=== PATIENT | female | born 1965 | race Caucasian/White ===

== ENCOUNTER → 2017-11-23 | Outpatient (CLI) | payer BC ==
[2016-05-13 21:30] VITALS: BP 165/96
[~2017-11-23] MED LIST: EFFEXOR75 MG PO; FLONASE0.05 MG/AC NS; IMITREX50 MG PO; INDERAL40 MG PO; NAPROSYN500 MG PO; NORCO 325 MG-51 TAB PO; PREMARIN1.25 MG PO; XANAX0.25 MG PO
== END ==
LOC: MAMMO 09:52 → RAD 10:00
DX: Z12.31 Encounter for screening mammogram for malignant neoplasm of breast (principal)

== ENCOUNTER → 2018-06-06 | Outpatient (CLI) | payer BC ==
[2016-05-13 21:30] VITALS: BP 165/96
[2018-06-06 11:44] LABS: EOS # 0.2 (0.04-0.40); EOS % 1.7 % (1.0-5.0); HEMATOCRIT 41.6 % (37.0-47.0); HEMOGLOBIN 13.1 g/dL (12.5-16.0); MEAN CELL VOLUME 92 fl (78-100); MEAN CORPUSCULAR HEMOGLOBIN 29 pg (27-31); MEAN CORPUSCULAR HGB CONC 32 g/dL (33-37); MEAN PLATELET VOLUME 9.7 fl (7.4-10.4); MONO # 0.7 (0.20-0.80); NEU # 5.7 (1.40-6.50); PLATELET COUNT 380 K/mm3 (130-400); RED BLOOD COUNT 4.54 M/mm3 (4.10-5.30); RED CELL DISTRIBUTION WIDTH 13.9 % (11.5-14.5); WHITE BLOOD COUNT 11.8 K/mm3 (4.8-10.8)
[2018-06-06 12:00] LABS: ALBUMIN 3.9 g/dL (3.5-5.0); BUN/CREATININE RATIO 32.5 (6.0-26.0); CALCIUM 8.7 mg/dL (8.4-10.2); POTASSIUM 4.4 mmol/L (3.6-5.0); TOTAL BILIRUBIN 0.2 mg/dL (0.2-1.3); TOTAL PROTEIN 7.3 g/dL (6.3-8.2)
[2018-06-06 12:21] LABS: LYMPH# 5.1 (1.50-4.00)
== END ==
LOC: LAB 10:58
PROVIDERS: Family Medicine
DX: Z01.419 Encounter for gynecological examination (general) (routine) without abnormal findings (principal)

== ENCOUNTER → 2018-11-29 | Outpatient (CLI) | payer BC ==
[2016-05-13 21:30] VITALS: BP 165/96
== END ==
LOC: MAMMO 10:44
DX: Z12.31 Encounter for screening mammogram for malignant neoplasm of breast (principal)

== ENCOUNTER → 2019-06-06 | Outpatient (CLI) | payer BC ==
[2016-05-13 21:30] VITALS: BP 165/96
[2019-06-06 09:39] LABS: EOS # 0.1 (0.04-0.40); EOS % 1.3 % (1.0-5.0); HEMATOCRIT 41.2 % (37.0-47.0); MEAN CELL VOLUME 92 fl (78-100); MEAN CORPUSCULAR HEMOGLOBIN 29 pg (27-31); MEAN CORPUSCULAR HGB CONC 32 g/dL (33-37); MEAN PLATELET VOLUME 9.5 fl (7.4-10.4); MONO # 0.5 (0.20-0.80); NEU # 4.7 (1.40-6.50); PLATELET COUNT 332 K/mm3 (130-400); RED CELL DISTRIBUTION WIDTH 13.3 % (11.5-14.5); WHITE BLOOD COUNT 9.9 K/mm3 (4.8-10.8)
[2019-06-06 09:44] LABS: ALBUMIN 3.8 g/dL (3.5-5.0); POTASSIUM 4.1 mmol/L (3.5-5.1)
[2019-06-06 09:45] LABS: CALCIUM 8.8 mg/dL (8.3-10.5)
[2019-06-06 09:46] LABS: TOTAL PROTEIN 6.9 g/dL (6.4-8.3)
[2019-06-06 09:48] LABS: TOTAL BILIRUBIN 0.2 mg/dL (0.2-1.2)
[2019-06-06 11:04] LABS: LYMPH# 4.6 (1.50-4.00)
== END ==
LOC: LAB 09:22
PROVIDERS: Family Medicine
DX: Z01.419 Encounter for gynecological examination (general) (routine) without abnormal findings (principal); E78.5 Hyperlipidemia, unspecified

== ENCOUNTER → 2019-07-13 | Outpatient (CLI) | payer BC ==
[2016-05-13 21:30] VITALS: BP 165/96
== END ==
LOC: RAD 11:59
DX: M25.511 Pain in right shoulder (principal)

== ENCOUNTER → 2019-07-19 | Outpatient (CLI) | payer BC ==
[2016-05-13 21:30] VITALS: BP 165/96
== END ==
LOC: RAD 15:09
DX: M75.111 Incomplete rotator cuff tear or rupture of right shoulder, not specified as traumatic (principal); M89.311 Hypertrophy of bone, right shoulder

== ENCOUNTER 2019-10-02 11:00 | Outpatient (RCR) | payer BC ==
[2016-05-13 21:30] VITALS: BP 165/96
== END 2019-10-02 11:30 | disposition still patient (30) ==
LOC: PT 11:00
DX: M75.111 Incomplete rotator cuff tear or rupture of right shoulder, not specified as traumatic (principal)

== ENCOUNTER → 2019-11-28 | Outpatient (CLI) | payer BC ==
[2016-05-13 21:30] VITALS: BP 165/96
== END ==
LOC: MAMMO 11:23
DX: Z12.31 Encounter for screening mammogram for malignant neoplasm of breast (principal)

== ENCOUNTER → 2020-12-16 | Outpatient (CLI) | payer BC ==
[2016-05-13 21:30] VITALS: BP 165/96
== END ==
LOC: MAMMO 12:51
DX: Z12.31 Encounter for screening mammogram for malignant neoplasm of breast (principal)

== ENCOUNTER → 2021-06-15 | Outpatient (CLI) | payer BC ==
[2021-06-15 10:28] LABS: BASO # 0.03 (0.02-0.10); EOS # 0.26 (0.04-0.40); EOS % 1.8 % (1.0-5.0); HEMATOCRIT 43.6 % (37.0-47.0); HEMOGLOBIN 13.9 g/dL (12.5-16.0); LYMPH# 6.52 (1.50-4.00); MEAN CELL VOLUME 91 fl (78-100); MEAN CORPUSCULAR HEMOGLOBIN 29 pg (27-31); MEAN CORPUSCULAR HGB CONC 32 g/dL (33-37); MEAN PLATELET VOLUME 9.1 fl (7.4-10.4); MONO # 0.81 (0.20-0.80); PLATELET COUNT 381 K/mm3 (130-400); RED CELL DISTRIBUTION WIDTH 13.4 % (11.5-14.5); WHITE BLOOD COUNT 14.5 K/mm3 (4.8-10.8)
[2021-06-15 10:41] LABS: ALBUMIN 4.3 g/dL (3.5-5.0); POTASSIUM 4.3 mmol/L (3.5-5.1)
[2021-06-15 10:45] LABS: TOTAL BILIRUBIN 0.4 mg/dL (0.2-1.2)
== END ==
LOC: LAB 05-29 12:58
PROVIDERS: Family Medicine
DX: Z00.00 Encounter for general adult medical examination without abnormal findings (principal); E78.5 Hyperlipidemia, unspecified

== ENCOUNTER → 2022-01-07 | Outpatient (CLI) | payer BC | LOC: MAMMO 10:00 | DX: Z12.31 Encounter for screening mammogram for malignant neoplasm of breast (principal) ==

== ENCOUNTER → 2022-04-28 | Outpatient (CLI) | payer BC ==
[2022-04-28 12:35] LABS: HEMATOCRIT 43.9 % (37.0-47.0); HEMOGLOBIN 14.3 g/dL (12.5-16.0); MEAN CELL VOLUME 89 fl (78-100); MEAN CORPUSCULAR HEMOGLOBIN 29 pg (27-31); MEAN CORPUSCULAR HGB CONC 33 g/dL (33-37); MEAN PLATELET VOLUME 9.1 fl (7.4-10.4); PLATELET COUNT 380 K/mm3 (130-400); RED BLOOD COUNT 4.93 M/mm3 (4.10-5.30); RED CELL DISTRIBUTION WIDTH 13.3 % (11.5-14.5); WHITE BLOOD COUNT 11.5 K/mm3 (4.8-10.8)
[2022-04-28 12:44] LABS: ALBUMIN 4.4 g/dL (3.5-5.0); POTASSIUM 5.1 mmol/L (3.5-5.1)
[2022-04-28 12:45] LABS: CALCIUM 10.1 mg/dL (8.3-10.5)
[2022-04-28 12:48] LABS: TOTAL BILIRUBIN 0.3 mg/dL (0.2-1.2)
[2022-04-28 13:10] LABS: LYMPHOCYTE 50 % (20-51); MONOCYTE 3 % (3-10); NEUTROPHILS 44 % (42-75)
== END ==
LOC: LAB 11:51
PROVIDERS: Family Medicine
DX: Z00.00 Encounter for general adult medical examination without abnormal findings (principal); E78.5 Hyperlipidemia, unspecified; J30.9 Allergic rhinitis, unspecified; F90.0 Attention-deficit hyperactivity disorder, predominantly inattentive type; I10 Essential (primary) hypertension; G43.009 Migraine without aura, not intractable, without status migrainosus; F41.8 Other specified anxiety disorders; E66.9 Obesity, unspecified

== ENCOUNTER → 2022-05-04 | Outpatient (CLI) | payer BC ==
[2022-05-04 17:54] LABS: HEPATITIS C ANTIBODY Negative (Negative)
== END ==
LOC: RAD 07:08 → LAB 07:08 → RAD 07:15
PROVIDERS: Family Medicine
DX: R74.01 Elevation of levels of liver transaminase levels (principal); K76.0 Fatty (change of) liver, not elsewhere classified; Z90.49 Acquired absence of other specified parts of digestive tract

== ENCOUNTER 2022-06-04 08:52 | Outpatient (RCR) | payer BC | END 2022-06-20 | disposition home or self-care (01) | LOC: CARDREHAB | DX: R06.09 Other forms of dyspnea (principal) | CPT/HCPCS: A9500 ==

== ENCOUNTER 2024-02-08 17:55 | Emergency (ER) | payer OTHER ==
[~2024-02-08] VITALS: Ht 162.6 cm; Wt 81.8 kg
[2024-02-08] MEDS ORDERED: Morphine 10 MG/ML VIAL IM ONE (18:30)
[2024-02-08 19:11] VITALS: BP 126/77
== END 2024-02-08 19:12 | disposition home or self-care (01) ==
LOC: ED 17:55
DX: S93.402A Sprain of unspecified ligament of left ankle, initial encounter (principal); W11.XXXA Fall on and from ladder, initial encounter; X50.1XXA Overexertion from prolonged static or awkward postures, initial encounter
CPT/HCPCS: J2270; L4386

== ENCOUNTER 2024-05-29 11:45 | Emergency (ER) | payer OTHER ==
[~2024-05-29] VITALS: Ht 162.6 cm; Wt 77.3 kg
[2024-05-29] MEDS ORDERED: NS 1,000 ML IV SCH ×2 (12:15→14:00)
[2024-05-29] MEDS ORDERED: Ketorolac 30 MG/ML VIAL IV ONE (12:15)
[2024-05-29] MEDS ORDERED: Ondansetron 4 MG/2 ML VIAL IV ONE (12:15)
[2024-05-29 12:49] LABS: BASO # 0.01 K/mm3 (0.02-0.10); EOS # 0.09 K/mm3 (0.04-0.40); EOS % 0.9 % (1.0-5.0); HEMATOCRIT 45.4 % (37.0-47.0); HEMOGLOBIN 14.9 g/dL (12.5-16.0); LYMPH# 4.19 K/mm3 (1.50-4.00); MEAN CELL VOLUME 88 fl (78-100); MEAN CORPUSCULAR HEMOGLOBIN 29 pg (27-31); MEAN CORPUSCULAR HGB CONC 33 g/dL (33-37); MEAN PLATELET VOLUME 9.2 fl (7.4-10.4); MONO # 0.72 K/mm3 (0.20-0.80); NEU # 4.94 K/mm3 (1.40-6.50); PLATELET COUNT 313 K/mm3 (130-400); RED BLOOD COUNT 5.19 M/mm3 (4.10-5.30); RED CELL DISTRIBUTION WIDTH 13.3 % (11.5-14.5)
[2024-05-29 12:55] LABS: ALBUMIN 4.2 g/dL (3.5-5.0)
[2024-05-29 12:57] LABS: CALCIUM 9.6 mg/dL (8.3-10.5)
[2024-05-29 12:58] LABS: TOTAL PROTEIN 7.6 g/dL (6.4-8.3)
[2024-05-29] MEDS ORDERED: Potassium Chloride 100 ML IV SCH (13:15)
[2024-05-29 13:37] LABS: TOTAL BILIRUBIN 0.5 mg/dL (0.2-1.2)
[2024-05-29 17:54] LABS: URINE COLOR YELLOW (YELLOW)
[2024-05-29 17:55] LABS: PH-URINE 6.5 (5.0 - 8.0); URINE APPEARANCE CLEAR (CLEAR); URINE BILIRUBIN NEGATIVE (NEGATIVE); URINE BLOOD NEGATIVE (NEGATIVE); URINE GLUCOSE NEGATIVE (NEGATIVE); URINE KETONE NEGATIVE (NEGATIVE); URINE LEUKOCYTE ESTERASE TRACE (NEGATIVE); URINE MUCUS PRESENT (NOT PRESENT); URINE NITRATE NEGATIVE (NEGATIVE); URINE PROTEIN(semi-quant) NEGATIVE (NEGATIVE)
[2024-05-29] MEDS ORDERED: POTASSIUM CITR10 MEQ PO (18:11)
[2024-05-29] MEDS ORDERED: ZOFRAN ODT4 MG PO (18:12)
[2024-05-29 19:16] VITALS: BP 133/98
== END 2024-05-29 19:16 | disposition home or self-care (01) ==
LOC: ED 11:45
PROVIDERS: Physician Assistant
DX: E87.6 Hypokalemia (principal); R11.2 Nausea with vomiting, unspecified; R19.7 Diarrhea, unspecified
CPT/HCPCS: J1885; J2405; J3480; J7030

== ENCOUNTER → 2024-05-31 | Outpatient (CLI) | payer OTHER ==
[~2024-05-31] MED LIST changes: +POTASSIUM CITR10 MEQ PO; +ZOFRAN ODT4 MG PO
[2024-05-31 11:09] LABS: BASO # 0.02 K/mm3 (0.02-0.10); EOS # 0.16 K/mm3 (0.04-0.40); EOS % 1.6 % (1.0-5.0); HEMATOCRIT 41.8 % (37.0-47.0); HEMOGLOBIN 13.5 g/dL (12.5-16.0); LYMPH# 4.35 K/mm3 (1.50-4.00); MEAN CELL VOLUME 89 fl (78-100); MEAN CORPUSCULAR HEMOGLOBIN 29 pg (27-31); MEAN CORPUSCULAR HGB CONC 32 g/dL (33-37); NEU # 4.77 K/mm3 (1.40-6.50); PLATELET COUNT 274 K/mm3 (130-400); RED BLOOD COUNT 4.69 M/mm3 (4.10-5.30); RED CELL DISTRIBUTION WIDTH 13.1 % (11.5-14.5); WHITE BLOOD COUNT 9.7 K/mm3 (4.8-10.8)
[2024-05-31 11:17] LABS: CALCIUM 9.2 mg/dL (8.3-10.5)
[2024-05-31 11:19] LABS: TOTAL PROTEIN 7.1 g/dL (6.4-8.3)
[2024-05-31 11:20] LABS: TOTAL BILIRUBIN 0.3 mg/dL (0.2-1.2)
== END ==
LOC: LAB 10:49
PROVIDERS: Family Medicine
DX: I10 Essential (primary) hypertension (principal)

== ENCOUNTER → 2024-06-12 | Outpatient (CLI) | payer OTHER ==
[2024-06-12 12:11] LABS: BASO # 0.02 K/mm3 (0.02-0.10); EOS # 0.17 K/mm3 (0.04-0.40); EOS % 1.6 % (1.0-5.0); HEMATOCRIT 43.8 % (37.0-47.0); HEMOGLOBIN 14.2 g/dL (12.5-16.0); LYMPH# 4.61 K/mm3 (1.50-4.00); MEAN CELL VOLUME 89 fl (78-100); MEAN CORPUSCULAR HEMOGLOBIN 29 pg (27-31); MEAN CORPUSCULAR HGB CONC 32 g/dL (33-37); MEAN PLATELET VOLUME 9.1 fl (7.4-10.4); MONO # 0.61 K/mm3 (0.20-0.80); NEU # 5.29 K/mm3 (1.40-6.50); PLATELET COUNT 373 K/mm3 (130-400); RED BLOOD COUNT 4.92 M/mm3 (4.10-5.30); RED CELL DISTRIBUTION WIDTH 13.2 % (11.5-14.5); WHITE BLOOD COUNT 10.7 K/mm3 (4.8-10.8)
[2024-06-12 12:19] LABS: ALBUMIN 4.3 g/dL (3.5-5.0)
[2024-06-12 12:20] LABS: CALCIUM 10.1 mg/dL (8.3-10.5)
[2024-06-12 12:21] LABS: TOTAL PROTEIN 7.6 g/dL (6.4-8.3)
[2024-06-12 12:23] LABS: TOTAL BILIRUBIN 0.3 mg/dL (0.2-1.2)
== END ==
LOC: LAB 11:59
PROVIDERS: Family Medicine
DX: E78.5 Hyperlipidemia, unspecified (principal); I10 Essential (primary) hypertension; E55.9 Vitamin D deficiency, unspecified

== ENCOUNTER 2024-07-26 10:48 | Outpatient (RCR) | payer OTHER | END 2024-08-20 | disposition home or self-care (01) | LOC: PT | DX: M25.572 Pain in left ankle and joints of left foot (principal) ==

== ENCOUNTER 2024-08-24 08:00 | Outpatient (RCR) | payer OTHER | END 2024-09-20 | disposition home or self-care (01) | LOC: PT | DX: M25.572 Pain in left ankle and joints of left foot (principal); Z87.81 Personal history of (healed) traumatic fracture ==

== ENCOUNTER 2024-10-01 08:00 | Outpatient (RCR) | payer OTHER | END 2024-10-20 | LOC: PT | DX: M25.572 Pain in left ankle and joints of left foot (principal) ==

== ENCOUNTER → 2024-10-08 | Outpatient (CLI) | payer OTHER ==
[2024-10-08 11:05] LABS: ALBUMIN 4.5 g/dL (3.5-5.0)
[2024-10-08 11:07] LABS: CALCIUM 9.9 mg/dL (8.3-10.5)
[2024-10-08 11:08] LABS: TOTAL PROTEIN 7.7 g/dL (6.4-8.3)
[2024-10-08 11:10] LABS: TOTAL BILIRUBIN 0.5 mg/dL (0.2-1.2)
== END ==
LOC: LAB 10:45
PROVIDERS: Family Medicine
DX: I10 Essential (primary) hypertension (principal)